=== PATIENT | male | born 1985 | race Hispanic/Latino ===

== ENCOUNTER 2017-09-30 01:02 | Emergency (ER) | payer MEDICAID ==
[2017-09-30 01:19] VITALS: TEMP 98.4; O2SAT 98
[2017-09-30] MEDS ORDERED: Naloxone 0.4 mg/ml Inj (Adult) IM ONE (01:29)
[2017-09-30 02:09] LABS: BASO % 0.3 % (0.0-2.0); EOS # 0.4 K/uL (0.0-0.7); HEMOGLOBIN 11.2 g/dL (12.0-18.0); LYMPH # 1.5 K/uL (1.0-4.3); LYMPH % 19.9 % (20.0-40.0); MEAN CELL VOLUME 86.2 fl (80.0-94.0); MEAN CORPUSCULAR HEMOGLOBIN 27.9 pg (27.0-31.0); MEAN CORPUSCULAR HGB CONC 32.3 g/dL (33.0-37.0); MEAN PLATELET VOLUME 7.6 fl (7.2-11.7); MONO # 0.6 K/uL (0.0-0.8); MONO % 7.7 % (0.0-10.0); NEUT # 4.9 K/uL (1.8-7.0); NEUT % 67.1 % (50.0-75.0); RED CELL DISTRIBUTION WIDTH 16.8 % (11.5-14.5); WHITE BLOOD COUNT 7.3 K/uL (4.8-10.8)
[2017-09-30 02:12] LABS: BLOOD UREA NITROGEN 21 mg/dl (9-20); CALCIUM 8.8 mg/dL (8.4-10.2); GFR AFRICAN-AMERICAN > 60; GFR NON-AFRICAN AMERICAN > 60
[2017-09-30 02:27] LABS: ACETAMINOPHEN < 10.0 ug/ml (10.0-30.0); SALICYLATE < 1.0 mg/dl
--- NOTE | 2017-09-30 03:42 | ED PDOC ---
HPI: Psych/Substance Abuse Time Seen by Provider: 09/30/17 01:12 Chief Complaint (Nursing): Substance Abuse Chief Complaint (Provider): Substance Abuse ED Caveat: Uncooperative History Per: EMS History/Exam Limitations: other (Uncooperative) Suicide/Self Injury Attempted (Context): None Modifying Factor(s): Other (Heroin) Additional Complaint(s): 31 year old male brought in by EMS presents to ED [place] [address] [place] [facility]. Patient is not forthcoming with history. As per EMS, patient abuses heroin. PCP: Unknown Past Medical History Reviewed: Nursing Documentation, Vital Signs, Unable To Obtain (Unable to obtain history or HPI/ROS) Vital Signs: Last Vital Signs Temp 98.4 F 09/30/17 01:12 Pulse 70 09/30/17 01:12 Resp 14 09/30/17 01:12 BP 123/83 09/30/17 01:12 Pulse Ox 98 09/30/17 01:12 - Family History Family History: States: Unknown Family Hx - Social History Drugs: Opiates - Home Medications Home Medications: Ambulatory Orders Medication Instructions Recorded No Known Home Med 05/09/17 - Allergies Allergies/Adverse Reactions: Allergies Allergy/AdvReac Type Severity Reaction Status Date / Time No Known Allergies Allergy Verified 05/28/17 22:57 Review of Systems Review Of Systems: ROS cannot be obtained secondary to pt's inabilty to answer questions. (Patient is not forthcoming) Physical Exam - Reviewed Nursing Documentation Reviewed: Yes Vital Signs Reviewed: Yes - Physical Exam Appears: Positive for: Non-toxic, No Acute Distress (Poor hygiene, poor odor) Skin: Positive for: Normal Color, Warm, Dry Cardiovascular/Chest: Positive for: Regular Rate, Rhythm Respiratory: Positive for: Normal Breath Sounds. Negative for: Respiratory Distress Gastrointestinal/Abdominal: Positive for: Soft. Negative for: Tenderness Extremity: Positive for: Other (Bilateral hands have scabs, cuts, and abrasions - appear chronic. no new wounds. neurovascular intact.) Neurologic/Psych: Negative for: Alert (somnolent), Oriented - Laboratory Results Result Diagrams: 09/30/17 01:50 09/30/17 01:50 - ECG O2 Sat by Pulse Oximetry: 98 (RA) Pulse Ox Interpretation: Normal Medical Decision Making Medical Decision Makin Initial impression: substance abuse Initial plan: * Narcan 0.4mg IM * Acetaminophen * EtOH serum * Labs * UDrug Screen * Salicylate 0135 After Narcan administration patient woke up and became extremely agitated, posing a risk to himself and the ED staff and therefore necessitating the use of 4 point restraints. 0300 Patient is resting comfortably. Vitals stable. 0500 Patient is resting comfortably. Vitals stable. 0700 Upon re-evaluation, patient is awake, alert, and oriented x3. Patient walks with a steady gait. pt admitted to heroin abuse. Patient is stable for discharge home and agrees to follow up with his PCP in 1- 2 days. Dx: heroin abuse ~ Scribe Attestation: Documented by Kenyatta Centeno, acting as a scribe for Jacquie Le MD. Provider Scribe Attestation: All medical record entries made by the Scribe were at my direction and personally dictated by me. I have reviewed the chart and agree that the record accurately reflects my personal performance of the history, physical exam, medical decision making, and the department course for this patient. I have also personally directed, reviewed, and agree with the discharge instructions and disposition. Disposition - Clinical Impression Clinical Impression: Heroin abuse - Patient ED Disposition Is Patient to be Admitted: No Counseled Patient/Family Regarding: Studies Performed, Diagnosis, Need For Followup - Disposition Referrals: [facility] [Outside] [facility] [Outside] Disposition: Routine/Home Disposition Time: 07:00 Condition: IMPROVED Additional Instructions: follow up with your primary doctor in 1-2 days return to the ED with any worsening or concerning symptoms Instructions: Drug Abuse and Drug Addiction (DC) Forms: [employer] (Burmese)
[2017-09-30 06:00] VITALS: BP 135/79; PULSE 88; RESP 18
== END 2017-09-30 09:39 | disposition home or self-care (01) ==
LOC: H.ER 01:02 → MERGE 01:02 → EDBD 01:02 → H.ER 09:39
DX: F11.10 Opioid abuse, uncomplicated (principal)
CPT/HCPCS: 80048; 80320; 80329; 82948; 85025; 96372; 99283; J2310